=== PATIENT | female | born 1960 | race Caucasian/White ===

== ENCOUNTER → 2016-06-12 | Outpatient (CLI) | payer BC ==
[~2016-06-12] MED LIST: AMLO-110 PO; CALCIUM CARBONATE 650 MG PO; CHOL100027 PO; CONJ0.3T3 PO; CYAN500T13 PO; LISI10TA PO; PROBIOTIC FORMULA PO; PRT/20 PO; VITA400C3 PO
--- NOTE | 2016-06-12 13:25 | MAMMOGRAPHY REPORT ---
BILATERAL DIGITAL SCREENING MAMMOGRAM TOMOSYNTHESIS WITH CAD: 06/12/2016 CLINICAL HISTORY: Routine screening. Patient has no complaints. TECHNIQUE: Bilateral breast tomosynthesis in addition to standard 2D mammography was performed. Curr ent study was also evaluated with a Computer Aided Detection (CAD) system. COMPARISON: Comparison is made to exams dated: 06/08/2015 mammogram, 06/01/2014 mammogram, 05/28/2013 m ammogram, 05/26/2012 mammogram, 11/16/2010 aspiration, and 11/10/2010 ultrasound - [facility]. BREAST COMPOSITION: The tissue of both breasts is heterogeneously dense, which may obscure small ma sses. FINDINGS: There is a possible 17 mm mass in the far superior and posterior right breast, best seen on the MLO view, for which additional spot compression to the symphysis views and targeted ultrasoun d are recommended. A new small clustered microcalcifications is seen in the approximate 9:00 middle one third of the right breast, warranting additional spot magnification views. There are a few stable punctate benign-appearing microcalcifications within the left breast and ramana gn coarse calcifications. No other suspicious mass, architectural distortion or cluster of microcalcifications is seen. IMPRESSION: ACR BI-RADS CATEGORY 0: INCOMPLETE EVALUATION: NEED ADDITIONAL IMAGING EVALUATION The possible 17 mm mass in the superior posterior right breast, and new small cluster of microcalcif ications in the 9:00 right breast need additional imaging evaluation. The patient will be called to schedule an appointment. Approximately 10% of breast cancers are not detected with mammography. A negative mammographic repor t should not delay biopsy if a clinically suggestive mass is present. Meghan Groves M.D. ay/:06/12/2016 08:09:19 Electrician Manager: Radha Price, [facility] letter sent: Addl Imaging 0 BI-RADS Code: ACR BI-RADS Category 0: Incomplete Evaluation: Need Additional Imaging Evaluation
== END | disposition home or self-care (01) ==
LOC: C.MAMM 07:12
PROVIDERS: ATTEND Obstetrics & Gynecology
DX: Z12.31 Encounter for screening mammogram for malignant neoplasm of breast (principal); N63 Unspecified lump in breast; R92.0 Mammographic microcalcification found on diagnostic imaging of breast

== ENCOUNTER → 2016-06-13 | Outpatient (CLI) | payer BC | END | disposition home or self-care (01) | LOC: C.PAPS 14:24 | PROVIDERS: ATTEND Obstetrics & Gynecology | DX: Z01.419 Encounter for gynecological examination (general) (routine) without abnormal findings (principal) ==

== ENCOUNTER → 2016-06-20 | Outpatient (CLI) | payer BC ==
--- NOTE | 2016-06-20 12:46 | MAMMOGRAPHY REPORT ---
UNILATERAL RIGHT DIGITAL DIAGNOSTIC MAMMOGRAM TOMOSYNTHESIS AND TARGETED RIGHT ULTRASOUND: 06/20/2016 CLINICAL HISTORY: 56-year-old woman called back from screening mammography for new clustered microca lcifications and possible mass within the right breast. TECHNIQUE: Spot magnification right CC and ML views; spot compression tomosynthesis right CC and MLO views were obtained. COMPARISON: Comparison is made to exams dated: 06/12/2016 mammogram, 06/01/2014 mammogram, 06/08/2015 mammogram, 05/28/2013 mammogram, 05/26/2012 mammogram, and 05/24/2011 mammogram - [facility] nter. BREAST COMPOSITION: The tissue of the right breast is heterogeneously dense, which may obscure smal l masses. FINDINGS: There is small, 2 mm cluster of amorphous microcalcifications in the approximate 9:00 mid dle one third of the right breast. This is new comparing to prior available mammograms. None of th e calcifications demonstrate definitive layering on the spot magnification ML view to confirm benign milk of calcium. Therefore, the cluster is indeterminate, warranting further evaluation with tissu e sampling. In the superior, far posterior right breast, there is effacement of the possible mass n ear the fatglandular interface on the supplemental tomosynthesis images. No focal area of architec tural distortion is seen. Further evaluation with ultrasound was performed in the superior right br east. Real-time high-resolution ultrasound was performed throughout the superior right breast. No suspici ous sonographic correlate is identified to correlate with the effacing mammographic mass and therefo re that most likely represented normal overlapping fibrolinear glandular tissue. Incidental note is made of an anechoic simple cyst in the 9:00 right breast, 4 cm from the nipple, measuring 4.3 mm. In the adjacent 9:30 right breast, 5 cm from the nipple, there is an incidentally identified lobulat ed hypoechoic solid versus cystic masses measuring approximately 3.7 x 3.9 x 3.9 mm and there is min imal blood flow identified within. This is indeterminate, warranting further evaluation with ultras ound-guided core biopsy. IMPRESSION: ACR BI-RADS CATEGORY 4B: INTERMEDIATE SUSPICION FOR MALIGNANCY, TARGETED ULTRASOUND ACR BI-RADS CATEGORY 4B: INTERMEDIATE SUSPICION FOR MALIGNANCY 1. Right breast stereotactic guided biopsy is recommended for a new 2 mm cluster of amorphous micro calcifications in the 9:00 middle one third of the breast. 2. Ultrasound-guided core needle biopsy is recommended for an incidentally identified hypoechoic so lid versus cystic mass measuring 4 mm in the 9:30 right breast, 5 cm from the nipple. 3. The possible 17 mm mass in the far posterior and superior right breast on the MLO view effaces o n the additional supplemental tomosynthesis images, and no suspicious sonographic correlate was iden tified. Pending benign pathology results, would recheck this area in 6 months to ensure stability. These results and recommendations were discussed with the patient at the time of the exam. She tent atively scheduled the biopsies prior to leaving our department. Approximately 10% of breast cancers are not detected with mammography. A negative mammographic repor t should not delay biopsy if a clinically suggestive mass is present. Meghan Groves M.D. ay/:06/20/2016 10:14:44 Laborer Demolition: Kenrick LEWIS(Dahlia)(Ana Luisa), [facility] letter sent: Abnormal 4/5 BI-RADS Code: ACR BI-RADS Category 4B: Intermediate Suspicion For Malignancy Ultrasound BI-RADS: AC R BI-RADS Category 4B: Intermediate Suspicion For Malignancy
== END | disposition home or self-care (01) ==
LOC: C.MAMM 08:20
PROVIDERS: ATTEND Obstetrics & Gynecology
DX: R92.0 Mammographic microcalcification found on diagnostic imaging of breast (principal); N63 Unspecified lump in breast

== ENCOUNTER → 2016-07-03 | Outpatient (CLI) | payer BC ==
--- NOTE | 2016-07-03 08:31 | Discharge Instructions ---
Discharge Instructions Procedure Procedure Date: Jul 03, 2016. Reason for visit: Right Calcs/Us Core Bx Right Mass. Discharge Discharge Date: Jul 03, 2016. Discharge Diagnosis: status post breast biopsy Instructions Activity Recommendations: Additional Limitations (see below) Return to School/Work: no limitations Recommended Home Diet: No Limitations Provider Instructions: ACTIVITY RECOMMENDATIONS: * No lifting, pushing, pulling or exercising the affected side for three days. RETURN TO SCHOOL/WORK: * You may return to work/school after the procedure, but do not perform any strenuous activities for 24 to 48 hours. MEDICATIONS: * Tylenol (two 325 mg) every four to six hours if needed for mild pain (if not allergic to Tylenol). DIET: * Resume previous diet. SPECIAL CARE INSTRUCTIONS: * Keep biopsy site dry for 24 hours. May shower after 24 hours, but do not soak (bathe) incision. * May remove Tegaderm (plastic patch) tomorrow AFTER showering. * Leave the steri-strips on for one week. Allow the steri-strips to fall off by themselves. If not off after one week, you may remove them. You may place a Bandaid crosswise over the strips, if desired. * Apply ice 10 minutes on and 10 minutes off as needed. * Wear a bra at bedtime to sleep more comfortably for 2-3 days. * Your referring physician should have the results after approximately 5 to 7 business days. * Call for unusual bleeding, fever, drainage, etc or if you have any questions call during normal business hours or after hours call Dr Maradiaga, [phone]. FOLLOW UP VISIT: Follow-up with Referring Physician as scheduled. Allergies Coded Allergies: No Known Allergies (Unverified , 07/05/12) Kye Kelly Recommendations: Call your doctor if: * Temperature above 101 degrees * Pain not relieved by pain medicine ordered * There is increased drainage or redness from any incision * You have any unanswered questions or concerns. Your Doctors Instructions noted above were prepared by provider Aparna Maradiaga. Patient Signature Section: Patient Instructions Signature Page Danica Washburn Patient (or Guardian) Signature/Date: I have read and understand the instructions given to me by my caregivers. Caregiver/RN/Doctor Signature/Date: The above-named patient and/or guardian has received patient instructions on this date. + Original Patient Signature Page (only) stays with chart. Please make copy for patient.
--- NOTE | 2016-07-03 13:23 | MAMMOGRAPHY REPORT ---
THIS REPORT HAS BEEN AMENDED. STEREOTACTIC GUIDED BIOPSY RIGHT BREAST: 07/03/2016 CLINICAL HISTORY: Indeterminate calcifications in the right 9:00 breast. PATIENT CONSENT: The procedure, risks, benefits, and alternatives of stereotactic biopsy with clip p lacement were discussed with the patient, and verbal and written consent was obtained. A timeout wa s performed immediately prior to the procedure. PROCEDURE DESCRIPTION: With stereotactic guidance, aseptic technique, and lidocaine as a local anest hetic (1% lidocaine to anesthetize the skin and 1% lidocaine with epinephrine to anesthetize the nadeem per tissues), the area of concern was sampled multiple times with a 9-gauge vacuum-assisted biopsy n eedle (Suros Eviva). The path of approach was lateral. The specimen radiograph demonstrates calcif ications to be present in the samples. A metallic marker clip was placed at the biopsy site. This was confirmed on postprocedure mammograms. Direct pressure was applied at the biopsy site and hemos tasis was readily achieved. The patient tolerated the procedure without complication. She was give n wound care instructions. COMPARISON: Comparison is made to exams dated: 06/20/2016 mammogram, 06/12/2016 mammogram, 06/08/2015 m ammogram, and 06/01/2014 mammogram - [facility]. IMPRESSION: STEREOTACTIC GUIDED BIOPSY Stereotactic biopsy of indeterminate calcifications in the right 9:00 breast, with clip placement. The patient will receive pathology results from her referring physician. Aparna Maradiaga M.D. ah/:07/03/2016 08:36:03 Camera Mechanic: Kenrick LEWIS(Dahlia)(Ana Luisa), [facility] AMENDMENT: 07/12/2016 Aparna Maradiaga M.D. The pathology results from right breast stereotactic biopsy were reviewed on 07/12/2016. 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 It is controversial whe ther intraductal papillomas without atypia should be excised. It appears that the entire cluster of calcifications was removed during the biopsy. Therefore, it is reasonable to perform a 6 month fol low-up instead of a surgical excision. Therefore, recommend follow-up diagnostic mammograms of the right breast as well as ultrasound in 6 months.
--- NOTE | 2016-07-03 13:24 | MAMMOGRAPHY REPORT ---
ULTRASOUND OF RIGHT BREAST: 07/03/2016 CLINICAL HISTORY: Right 9:30 breast mass, for which biopsy was recommended. COMPARISON: Comparison is made to exams dated: 06/20/2016 ultrasound, 06/20/2016 mammogram, 06/12/2016 m ammogram, 06/08/2015 mammogram, 06/01/2014 mammogram, and 05/28/2013 mammogram - [facility] enter. TECHNIQUE: Real-time targeted ultrasound of the right breast was performed. FINDINGS: Real-time, high resolution targeted ultrasound was performed of the area of the previously seen mass in the right breast at 9:30, 5 cm from the nipple. Multiple scattered cysts were seen in the regio n, with the previously seen right 9:30 breast mass not clearly evident on the exam. Therefore, biop sy was not performed. Recommend follow-up diagnostic mammograms and ultrasound of the right breast in 6 months to reevaluate the region. IMPRESSION: ACR-BI-RADS CATEGORY 3: PROBABLY BENIGN - FOLLOW-UP RECOMMENDED The previously described right 9:30 breast mass was not clearly evident on the current exam, therefo re, biopsy was not performed. Recommend follow-up diagnostic mammograms and ultrasound in 6 months to reevaluate. The patient was verbally notified of the results. Aparna Maradiaga M.D. /:07/03/2016 09:12:58 Supervisor Rod Placing: Aparna Maradiaga MD, [facility] BI-RADS Code: ACR-BI-RADS Category 3: Probably Benign
--- NOTE | 2016-07-03 13:24 | MAMMOGRAPHY REPORT ---
UNILATERAL RIGHT DIGITAL DIAGNOSTIC MAMMOGRAM: 07/03/2016 CLINICAL HISTORY: Status post right breast stereotactic biopsy. TECHNIQUE: Postprocedural right CC and LM views were obtained. COMPARISON: Comparison is made to exams dated: 06/20/2016 mammogram, 06/12/2016 mammogram, 06/08/2015 m ammogram, 06/01/2014 mammogram, 05/28/2013 mammogram, and 05/24/2011 mammogram - [facility] nter. BREAST COMPOSITION: The tissue of the right breast is heterogeneously dense, which may obscure smal l masses. FINDINGS: A new biopsy marker clip is seen at the site of the biopsied calcifications in the right 9:00/central breast. No significant postbiopsy hematoma is seen. IMPRESSION: POST PROCEDURE IMAGING FOR MARKER PLACEMENT New biopsy marker clip status post right breast stereotactic biopsy. Pathology results are pending. Pending benign pathology results, recommend follow-up diagnostic mammograms and ultrasound of the right breast in 6 months to reevaluate the mammographic asymmetry and the previously seen mass on ul trasound which was not biopsied. Approximately 10% of breast cancers are not detected with mammography. A negative mammographic repor t should not delay biopsy if a clinically suggestive mass is present. Aparna Maradiaga M.D. ah/:07/03/2016 09:15:41 Director Of Head [employer]: Kenrick LEWIS(Dahlia)(M), [facility] BI-RADS Code: Post Procedure Imaging For Marker Placement
== END | disposition home or self-care (01) ==
LOC: C.MAMM 07:53
PROVIDERS: ATTEND Obstetrics & Gynecology
DX: N63 Unspecified lump in breast (principal); R92.0 Mammographic microcalcification found on diagnostic imaging of breast; R92.1 Mammographic calcification found on diagnostic imaging of breast; N60.91 Unspecified benign mammary dysplasia of right breast

== ENCOUNTER → 2016-12-18 | Outpatient (CLI) | payer BC ==
--- NOTE | 2016-12-18 07:19 | DIAGNOSTIC IMAGING REPORT ---
MRI OF THE BRAIN WITHOUT CONTRAST CLINICAL HISTORY: TINNITUS LIGHTHEADEDNESS, HEADACHES. COMPARISON STUDY: None. FINDINGS: Sagittal T1, axial diffusion, proton density and T2 weighted axial, coronal FLAIR, and axial T1-weighted images were acquired. No intra or extra-axial mass lesions are visualized Axial diffusion-weighted images reveal no evidence of acute or subacute infarction. There is no evidence of ventricular dilatation. Proton density T2-weighted and FLAIR images reveal no significant intraparenchymal signal abnormalities. There are no abnormal flow voids. There is asymmetric CSF signal within the internal auditory canals, with diminished T2 signal in the right. If there is clinical concern of an intracanalicular lesion, a contrast-enhanced study of the internal auditory canal should be obtained in follow-up IMPRESSION: 1. Asymmetric CSF signal within the internal auditory canals. If there is clinical concern of an intracanalicular lesion, a contrast-enhanced study of the internal auditory canal should be obtained in follow-up. 2. Otherwise unremarkable MRI of the brain for age. No evidence of acute or subacute infarction. Electronically signed by: Ethan Gaspar M.D. 12/18/2016 7:17 AM Dictated Date/Time: 12/18/2016 7:11 AM
== END | disposition home or self-care (01) ==
LOC: C.MRI 06:27
PROVIDERS: ATTEND Family Medicine
DX: R51 Headache (principal); R42 Dizziness and giddiness; H93.19 Tinnitus, unspecified ear

== ENCOUNTER → 2017-01-03 | Outpatient (CLI) | payer BC ==
--- NOTE | 2017-01-03 14:07 | MAMMOGRAPHY REPORT ---
UNILATERAL RIGHT DIGITAL DIAGNOSTIC MAMMOGRAM TOMOSYNTHESIS WITH CAD AND TARGETED RIGHT ULTRASOUND: CLINICAL HISTORY: History of right breast stereotactic biopsy June 2016 which yielded an intraduc gris papilloma without atypical features. The patient consulted with a surgeon and opted for follow-u p as opposed to surgical excision. The patient presents for six-month follow-up. A biopsy was also recommended for a right 9:30 breast mass seen on ultrasound in June, but the mass was no longer s een on the day of the biopsy. She denies any current complaints. TECHNIQUE: Breast tomosynthesis in addition to standard 2D mammography was performed. Current study was also evaluated with a Computer Aided Detection (CAD) system. Right CC and MLO 2-D and tomosynthe sis images and spot magnification right cc and ML views were obtained. COMPARISON: Comparison is made to exams dated: 07/03/2016 mammogram, 06/20/2016 ultrasound, 06/20/2016 ma mmogram, 06/12/2016 mammogram, 06/08/2015 mammogram, and 06/01/2014 mammogram - [facility]. BREAST COMPOSITION: The tissue of the right breast is heterogeneously dense, which may obscure small masses. FINDINGS: A biopsy marker clip is seen within the right central breast at the site of the stereotact ic biopsy which yielded intraductal papilloma. Spot magnification views of the biopsy site demonstra te no new or residual calcifications. The remainder of the right breast is stable compared to prior exams, without suspicious masses, calcifications, or areas of architectural distortion noted. Targeted ultrasound was performed of the area of the previously seen mass for which biopsy was recomm ended although was not seen on the day of the biopsy, in the right breast at 9:30, 5 cm from the nipp le. Ultrasound of this region demonstrates no suspicious masses or other suspicious sonographic abno rmalities. IMPRESSION: ACR BI-RADS CATEGORY 2: BENIGN, TARGETED ULTRASOUND ACR BI-RADS CATEGORY 2: BENIGN No new or residual calcifications at the stereotactic biopsy site in the right breast which yielded i ntraductal papilloma without atypia. There is no mammographic or targeted sonographic evidence of ma lignancy. Return to annual mammogram screening schedule is recommended, due May 2017. The patien t has been verbally notified of the results. Approximately 10% of breast cancers are not detected with mammography. A negative mammographic report should not delay biopsy if a clinically suggestive mass is present. Aparna Maradiaga M.D. ah/:01/03/2017 10:13:16 Hot Strip Mill Inspector: Barbara LANE)(Ana Luisa), [facility] letter sent: Normal 1/2 BI-RADS Code: ACR BI-RADS Category 2: Benign Ultrasound BI-RADS: ACR BI-RADS Category 2: Benign
== END | disposition home or self-care (01) ==
LOC: C.MAMM 09:33
PROVIDERS: ATTEND Obstetrics & Gynecology
DX: Z09 Encounter for follow-up examination after completed treatment for conditions other than malignant neoplasm (principal); N63 Unspecified lump in breast

== ENCOUNTER → 2017-02-08 | Outpatient (CLI) | payer BC ==
[~2017-02-08] MED LIST changes: +GADAVIST IV PRN
--- NOTE | 2017-02-12 08:48 | DIAGNOSTIC IMAGING REPORT ---
BRAIN COMBO FOR IAC CLINICAL HISTORY: 56 years-old Female presenting with bilateral tinnitus, dizziness and lightheadedness; asymmetric CSF intensity noted on MR brain from 12/18/2016, contrast-enhanced examination for further evaluation. TECHNIQUE: Multisequence, multiplanar MR imaging of the brain was performed before and after the administration of intravenous contrast. IV contrast: 8 mL of Gadavist. COMPARISON: 12/18/2016. FINDINGS: The previously suggested asymmetric CSF signal intensity within the right internal auditory canal was likely due to volume averaging as thin section T2-weighted imaging demonstrates normal thickness of the transiting nerves and no evidence of mass. No abnormal enhancement. Normal signal intensity of the bilateral inner ears structures. No mastoid air cell fluid. Ventricles and sulci normal in size. Brain parenchyma normal in appearance with preserved trejo-white differentiation. No mass effect or midline shift. No restricted diffusion to suggest acute ischemia. No hemorrhage. No extra-axial fluid collection. T2 skull base flow voids preserved. Postcontrast imaging was not performed. Bone marrow signal intensity within the calvarium within normal limits. Bilateral [place] lenses of the globes are absent. IMPRESSION: 1. No acute intracranial pathology. No abnormal enhancement. 2. Normal internal auditory canals without evidence of a mass lesion. The previous seen noted abnormality was likely due to volume averaging. Electronically signed by: Suresh Lopez M.D. 02/08/2017 4:13 PM Dictated Date/Time: 02/08/2017 4:08 PM
== END | disposition home or self-care (01) ==
LOC: C.MRI 08:42
DX: H93.13 Tinnitus, bilateral (principal)

== ENCOUNTER → 2017-06-03 | Outpatient (CLI) | payer OTHER ==
[~2017-06-03] MED LIST changes: -GADAVIST IV PRN
--- NOTE | 2017-06-03 16:26 | DIAGNOSTIC IMAGING REPORT ---
ABDOMEN 2VIEW W/PA CHEST RTN CLINICAL HISTORY: K59.00 ABDOMINAL PAIN AND CONSTIPATION COMPARISON STUDY: Chest x-ray dated December 25, 2013 FINDINGS: The erect chest reveals no evidence of free air. There is no evidence of focal pulmonary consolidation.] Erect and supine views of the abdomen reveal no abnormally dilated loops of large or small bowel. There are no transition zone to indicate bowel obstruction. There is scattered stool present within the colon. IMPRESSION: No evidence of bowel obstruction. No evidence of free air. Electronically signed by: Ethan Gaspar M.D. 06/03/2017 4:25 PM Dictated Date/Time: 06/03/2017 4:25 PM
== END | disposition home or self-care (01) ==
LOC: C.RAD1850 15:55
PROVIDERS: ATTEND Family Medicine
DX: K59.00 Constipation, unspecified (principal)

== ENCOUNTER → 2017-06-18 | Outpatient (CLI) | payer OTHER | END | disposition home or self-care (01) | LOC: C.PAPS 11:28 | PROVIDERS: ATTEND Obstetrics & Gynecology | DX: Z01.419 Encounter for gynecological examination (general) (routine) without abnormal findings (principal) ==

== ENCOUNTER → 2017-06-19 | Outpatient (CLI) | payer OTHER ==
--- NOTE | 2017-06-19 15:23 | MAMMOGRAPHY REPORT ---
BILATERAL DIGITAL SCREENING MAMMOGRAM TOMOSYNTHESIS WITH CAD: 06/19/2017 CLINICAL HISTORY: Routine screening. Patient has no complaints. TECHNIQUE: Breast tomosynthesis in addition to standard 2D mammography was performed. Current study was also evaluated with a Computer Aided Detection (CAD) system. COMPARISON: Comparison is made to exams dated: 01/03/2017 mammogram, 06/20/2016 ultrasound, 06/20/2016 ma mmogram, 06/12/2016 mammogram, 06/08/2015 mammogram, and 06/01/2014 mammogram - [facility] nter. BREAST COMPOSITION: The tissue of both breasts is heterogeneously dense, which may obscure small mas ses. FINDINGS: No suspicious masses, calcifications, or areas of architectural distortion are noted in ei ther breast. There has been no significant interval change compared to prior exams. A biopsy marker clip is again noted within the right breast from prior stereotactic biopsy which yielded intraductal papilloma without atypia. IMPRESSION: ACR BI-RADS CATEGORY 2: BENIGN There is no mammographic evidence of malignancy. A 1 year screening mammogram is recommended. The pa tient will receive written notification of the results. Approximately 10% of breast cancers are not detected with mammography. A negative mammographic report should not delay biopsy if a clinically suggestive mass is present. Aparna Maradiaga M.D. /:06/19/2017 07:31:31 Manager Delivery: Barbara LEWIS(R)(M), [facility] letter sent: Normal 1/2 BI-RADS Code: ACR BI-RADS Category 2: Benign
== END | disposition home or self-care (01) ==
LOC: C.MAMM 07:07
PROVIDERS: ATTEND Obstetrics & Gynecology
DX: Z12.31 Encounter for screening mammogram for malignant neoplasm of breast (principal)

== ENCOUNTER → 2017-07-04 | Outpatient (CLI) | payer OTHER ==
[~2017-07-04] MED LIST changes: +OPTIRAY 320 IV PRN
--- NOTE | 2017-07-04 08:35 | DIAGNOSTIC IMAGING REPORT ---
CT OF THE ABDOMEN AND PELVIS WITH CONTRAST CLINICAL HISTORY: Left lower quadrant abdominal pain. Constipation. Evaluate for acute diverticulitis. COMPARISON STUDY: CT of the abdomen and pelvis December 09, 2008. TECHNIQUE: Following IV administration of 94 mL of Optiray-320, axial images of the abdomen and pelvis were obtained from the lung bases to the proximal femurs. Images were reviewed in the axial, sagittal, and coronal planes. IV contrast was administered without complication. A dose lowering technique was utilized adhering to the principles of ALARA. CT DOSE: 466.87 mGy.cm FINDINGS: The liver, spleen, adrenal glands, kidneys and pancreas are normal. There is no hydronephrosis. No biliary or pancreatic ductal dilatation is present.. The caliber and wall thickness of small and large bowel are normal. There is a [id number] amount of stool within the colon and moderate amount of stool within the rectum. Note is made of a small fat-containing tubular structure with minimal adjacent infiltration anterior to the mid descending colon. There is no free air or abscess. There is no evidence for diverticulitis. No suspicious osseous lesions are present. There is no lymphadenopathy or ascites. No ureteral calculi are identified. The appendix is normal. IMPRESSION: 1. Small fat-containing tubular structure with minimal adjacent infiltration along the anterior aspect of the mid descending colon consistent with mild epiploic appendagitis which likely accounts for the symptoms. This represents a self-limiting process. No evidence for diverticulitis. 2. Mild to moderate amount of stool within the colon and rectum. No bowel obstruction. Electronically signed by: Mello Engle M.D. 07/04/2017 8:33 AM Dictated Date/Time: 07/04/2017 8:10 AM
== END | disposition home or self-care (01) ==
LOC: C.CTS 07:51
PROVIDERS: ATTEND Family Medicine
DX: R10.32 Left lower quadrant pain (principal); K59.00 Constipation, unspecified